=== PATIENT | female | born 1945 | race Caucasian/White ===

== ENCOUNTER 2017-12-30 16:09 | Observation (INO) ==
[2017-12-30 16:48] LABS: Basophils % 0.3 %; Eosinophils # 0.1 K/mcL (0.0-0.6); Eosinophils % 1.2 %; Hematocrit 39.1 % (35.3-44.9); Hemoglobin 13.3 g/dL (11.5-15.4); Immature Granulocytes % 0.4 % (0-4); Lymphocytes # 1.6 K/mcL (0.6-4.6); Lymphocytes % 16.3 %; Mean Corpuscular Hemoglobin 31.3 pg (28.0-33.3); Mean Platelet Volume 9.6 fL (9.4-12.4); Monocytes # 0.7 K/mcL (0.0-1.3); Monocytes % 7.4 %; Neutrophils # 7.2 K/mcL (1.6-8.9); Platelet Count 195 K/mcL (140-400); Red Blood Count 4.25 M/mcL (3.82-4.97); Red Cell Distribution Width 12.9 % (11.5-14.5); Segmented Neutrophils % 74.4 %
[2017-12-30 17:07] LABS: Prothrombin Time 10.7 Seconds (9.4-12.1)
[2017-12-30 17:10] LABS: Activated Partial Thrombo Time 26.5 Seconds (26.0-36.0)
[2017-12-30 17:13] LABS: Troponin I < 0.03 ng/mL (< 0.04)
[2017-12-30 17:15] LABS: BUN/Creatinine Ratio 19 (6-26); Blood Urea Nitrogen 11 mg/dL (8-23); Calcium 9.3 mg/dL (8.6-10.3); Carbon Dioxide 25 mEq/L (23-29); Chloride 105 mEq/L (98-107); Glucose 132 mg/dL (70-105); Osmolality,Calculated 285 (280-300); Potassium 3.6 mEq/L (3.5-5.1); Sodium 137 mEq/L (136-145); eGFR For African Americans > 60 (> 60); eGFR For Non-African Americans > 60 (> 60)
--- NOTE | 2017-12-30 17:17 | Emergency Department Note ---
Disposition Clinical Impression: Near syncope, Dizziness Fall Qualifiers: Encounter type: initial encounter Qualified Code(s): W19.XXXA - Unspecified fall, initial encounter Disposition: Admitted As Inpatient Condition: Good Referrals: Jovi Hawkins MD [Primary Care Provider] - Forms: ED Satisfaction Letter Time of Disposition: 18:05 General Adult HPI - General Chief complaint: ED Syncope Stated complaint: Near syncopy/dizzy Time Seen by Provider: 12/30/17 16:16 Source: patient Limitations: no limitations Nursing Notes Reviewed: Yes Vital Signs Reviewed: Yes - History of Present Illness HPI Narrative: Patient presents via personal vehicle for evaluation of intermittent dizziness. Patient of the symptoms come on just prior to arrival. Patient was walking the store and felt little lightheaded and felt dizzy. She felt like she passed out but never did. Mild anterior presented here in the emergency room her symptoms are completely resolved she feels completely normal. She denies any chest pain shortness of breath headache vision changes nausea vomiting or diarrhea prior to that event. Her only complaint today during the event was nursing syncopal presentation along with dizziness. 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 Radiation: non-radiation Pain Severity: mild Pain Scale: 0 Consistency: now resolved Improves with: nothing Worsens with: nothing Associated symptoms: Reports: denies other symptoms Treatments Prior to Arrival: none - Related Data Home Medications Medication Instructions Recorded Confirmed Naproxen Sodium [Aleve] 220 mg PO Q12H PRN 03/17/16 03/17/16 Previous Rx's Medication Instructions Recorded Naproxen [Naprosyn] 375 mg PO BID PRN #20 tablet 07/24/17 Allergies Allergy/AdvReac Type Severity Reaction Status Date / Time No Known Allergies Allergy Verified 07/24/17 11:57 All systems ED: reviewed and negative except as stated. Review of Systems: As Per HPI Constitutional: Denies: fever, chills, weakness Eyes: Denies: eye pain, eye discharge ENT ED: Denies: ear pain, throat pain, dental pain, hearing loss, congestion Cardiovascular: Denies: chest pain, palpitations, dyspnea on exertion, orthopnea , edema Respiratory: Denies: cough, dyspnea, wheezes Gastrointestinal: Denies: nausea, vomiting, diarrhea Musculoskeletal: Denies: back pain, neck pain Neurological: Denies: headache, weakness, numbness Psychiatric: Denies: anxiety Endocrine: Denies: fatigue Past Medical History - Past Medical History Attestation: Yes The following information was validated with the patient. Source: patient Medical history: Reports: no medical history Surgical history: Reports: hysterectomy Psychiatric history: Reports: no psych history - Social History Smoking Status: Never smoker Smokeless Tobacco Status: No Alcohol use: Reports: none Drug use: Reports: none Physical Exam - General Limitations: no limitations General appearance: alert, in no apparent distress - Eye Eye exam: Present: normal appearance, PERRL, EOMI - ENT ENT exam: normal exam, normal oropharynx, mucous membranes moist - Neck Neck exam: Present: normal inspection, full ROM, trachea midline - Chest Chest inspection: Present: normal inspection, symmetric chest wall rise - Respiratory Respiratory exam: Present: normal lung sounds bilaterally - Cardiovascular Cardiovascular exam: Present: regular rate, normal rhythm, normal heart sounds - Abdominal Exam Abdominal exam: Present: soft, Non-Tender, normal bowel sounds. Absent: tenderness, distention, guarding, rebound, rigidity, Mukherjee's sign, Rovsing's sign, tenderness at McBurney's Point - Extremities Exam Extremities exam: Present: normal inspection, full ROM, normal capillary refill. Absent: tenderness - Back Exam Back exam: Present: normal inspection - Neurological Exam Neurological exam: Present: alert, oriented X3, CN II-XII intact, normal gait. Absent: motor sensory deficit - Psychiatric Psychiatric exam: Present: normal affect, normal mood - Skin Skin exam: Present: warm, dry, intact, normal color Course Course Narrative: Patient seen and examined the time of arrival here to the emergency room. See history of present illness. 72-year-old female presents with approximately 5 minutes with of dizziness. Patient was out walking around going to the store today trying on clothing when she felt lightheaded and dizzy. She almost passed out. She is up to the floor without falling. Patient had no acute symptoms at that time. The symptoms completely resolved. She is felt something uneasy going on throughout the entire timeframe but does not describe any symptoms concerning for chest pain shortness of breath headache vision changes nausea vomiting or diarrhea fevers or chills. Denies any other new symptoms issues or medical changes here recently. Patient has been under a great deal of stress with her is getting out of the hospital. On physical exam here, patient resting comfortably in the bed she is alert she is oriented she speaks in full sentences. She has no facial asymmetry no slurred speech. Cranial nerves II through XII are grossly intact. She has had complete resolution of the symptoms and denies any complaints on my evaluation. Oropharynx is patent uvulas midline. Trachea is midline. She has no stridor no trismus. Her lungs are clear heart is regular. She has normal function of the upper and lower extremities with palpable radial pulses in the DP and PT distributions that are all symmetrical. Patient has no acute cerebellar dysfunction noted on finger to nose testing and [id number] testing. Patient is and Vincenzo here in the emergency room without any distress. Because of the presentation timeframe and the presenting symptoms along with intermittent dizziness patient will have CT imaging of the head EKG labs including CBC chemistry troponin and BNP electrolytes at this time. Disposition will most likely be admission the hospital secondary to near syncopal event today with unknown etiology. Her EKG was collected on presentation does show what appears to be stable left bundle branch block that is chronic. She has chronic inverted T waves in leads 1 aVL. There is no acute signs of ST segment elevation or abnormality. Patient is otherwise clinically stable and is denying chest pain throughout the course of care. Disposition to be completed once the full workup and treatment course are established. Once CT imaging of the head is negative patient will be provided with aspirin. Low clinical suspicion of this time for strokelike symptoms considering the acute onset of the symptoms and then the resolution patient will require full workup for near syncope and stroke presentation. - Reevaluation(s) Reevaluation #1: CT imaging of the head confirms what appears to be air-fluid level in the maxillary sinuses consistent with acute sinusitis. Patient also has chronic microvascular disease. Repeat EKG collected secondary to the tachycardia initially shows stable presentation with no change in morphology at this time. CBC chemistry troponin are all unremarkable at this point. Patient will be reevaluated and disposition will be determined. Chest x-ray does not show any acute pathology at this time. Time: 17:49 Reevaluation #2: Patient is accommodating for admission this time. She has been asymptomatic at this time. Patient is otherwise clinically stable. Will admit for near syncopal evaluation possible MRIs of the brain. Patient has no other acute pathology during this treatment course. Time: 18:06 Reevaluation #3: Patient was discussed with the hospitalist Dr. Norman. Detailed review of presentation symptoms medical intervention and evaluation were discussed at length. Only recommendation from them at this time is to address the blood pressure was persistently elevated. I went in to reevaluate the patient and her heart rate is now in the 80s and her most recent blood pressure is 141/91. I will not make any adjustments to his blood pressure this time they can continue to manage set up on the floor. Patient is otherwise resting comfortably in the bed no distress. Admission process will be completed at this time for near-syncopal event Time: 18:33 Vital Signs Temperature 97.8 F 12/30/17 16:17 Pulse Rate 95 12/30/17 16:17 Respiratory Rate 18 12/30/17 16:17 Blood Pressure 182/84 12/30/17 16:17 O2 Sat by Pulse Oximetry 98 12/30/17 16:17 Temperature 97.8 F 12/30/17 16:17 Pulse Rate 105 12/30/17 16:34 Respiratory Rate 15 12/30/17 16:34 Blood Pressure 175/84 12/30/17 16:34 O2 Sat by Pulse Oximetry 99 12/30/17 16:34 Oxygen Delivery Oxygen Delivery Room Air Medical Decision Making - MDM Narrative Medical decision making narrative: Near syncope, dizziness - Medical Records Medical records reviewed: Yes I reviewed the patient's medical records. - Lab Data Lab results reviewed: Yes I reviewed the patient's lab results. Result diagrams: 12/30/17 16:37 12/30/17 16:37 Lab Results 12/30/17 12/30/17 12/30/17 Range/Units 16:37 16:37 16:37 WBC 9.7 (4.3-11.1) K/mcL RBC 4.25 (3.82-4.97) M/mcL Hgb 13.3 (11.5-15.4) g/dL Hct 39.1 (35.3-44.9) % MCV 92.0 (83.0-100.0) fL MCH 31.3 (28.0-33.3) pg MCHC 34.0 (31.6-35.5) g/dL RDW 12.9 (11.5-14.5) % Plt Count 195 (140-400) K/mcL MPV 9.6 (9.4-12.4) fL Immature Gran % 0.4 (0-4) % Seg Neutrophils % 74.4 % Lymphocytes % 16.3 % Monocytes % 7.4 % Eosinophils % 1.2 % Basophils % 0.3 % Neutrophils # 7.2 (1.6-8.9) K/mcL Lymphocytes # 1.6 (0.6-4.6) K/mcL Monocytes # 0.7 (0.0-1.3) K/mcL Eosinophils # 0.1 (0.0-0.6) K/mcL Basophils # 0.0 (0.0-0.2) K/mcL PT 10.7 (9.4-12.1) Seconds INR 1.0 APTT 26.5 (26.0-36.0) Seconds Sodium 137 (136-145) mEq/L Potassium 3.6 (3.5-5.1) mEq/L Chloride 105 (98-107) mEq/L Carbon Dioxide 25 (23-29) mEq/L BUN 11 (8-23) mg/dL Creatinine 0.59 L (0.60-1.20) mg/dL Est GFR ( Amer) > 60 (> 60) Est GFR (Non-Af Amer) > 60 (> 60) BUN/Creatinine Ratio 19 (6-26) Glucose 132 H (70-105) mg/dL POC Glucose (70-99) mg/dL Calculated Osmolality 285 (280-300) Calcium 9.3 (8.6-10.3) mg/dL Troponin I < 0.03 (< 0.04) ng/mL Urine Color (Yellow) Urine Clarity (Clear) Urine pH (5.0-8.0) pH Units Ur Specific Talent (1.010-1.025) Urine Protein (Neg-Trace) mg/dL Urine Glucose (UA) (Normal) mg/dL Urine Ketones (Negative) mg/dL Urine Blood (Negative) Urine Nitrite (Negative) Urine Bilirubin (Negative) Urine Urobilinogen (Normal) mg/dL Ur Leukocyte Esterase (Negative) 12/30/17 12/30/17 Range/Units 16:39 17:15 WBC (4.3-11.1) K/mcL RBC (3.82-4.97) M/mcL Hgb (11.5-15.4) g/dL Hct (35.3-44.9) % MCV (83.0-100.0) fL MCH (28.0-33.3) pg MCHC (31.6-35.5) g/dL RDW (11.5-14.5) % Plt Count (140-400) K/mcL MPV (9.4-12.4) fL Immature Gran % (0-4) % Seg Neutrophils % % Lymphocytes % % Monocytes % % Eosinophils % % Basophils % % Neutrophils # (1.6-8.9) K/mcL Lymphocytes # (0.6-4.6) K/mcL Monocytes # (0.0-1.3) K/mcL Eosinophils # (0.0-0.6) K/mcL Basophils # (0.0-0.2) K/mcL PT (9.4-12.1) Seconds INR APTT (26.0-36.0) Seconds Sodium (136-145) mEq/L Potassium (3.5-5.1) mEq/L Chloride (98-107) mEq/L Carbon Dioxide (23-29) mEq/L BUN (8-23) mg/dL Creatinine (0.60-1.20) mg/dL Est GFR ( Amer) (> 60) Est GFR (Non-Af Amer) (> 60) BUN/Creatinine Ratio (6-26) Glucose (70-105) mg/dL POC Glucose 141 H (70-99) mg/dL Calculated Osmolality (280-300) Calcium (8.6-10.3) mg/dL Troponin I (< 0.04) ng/mL Urine Color Yellow (Yellow) Urine Clarity Clear (Clear) Urine pH 6.5 (5.0-8.0) pH Units Ur Specific Talent 1.012 (1.010-1.025) Urine Protein Negative (Neg-Trace) mg/dL Urine Glucose (UA) Normal (Normal) mg/dL Urine Ketones Negative (Negative) mg/dL Urine Blood Negative (Negative) Urine Nitrite Negative (Negative) Urine Bilirubin Negative (Negative) Urine Urobilinogen Normal (Normal) mg/dL Ur Leukocyte Esterase Negative (Negative) - Radiology Data Radiology results reviewed: Yes I reviewed the patient's radiology results. Chest x-ray and CT imaging of the head unremarkable this time for intracranial intrathoracic related pathology. - EKG Data EKG #1 EKG attestation: Yes I reviewed and interpreted this EKG. EKG results narrative: EKG shows sinus rhythm. Ventricular rate of 108. FL interval 170. QRS duration of 140. QTC of 436. [place] appears to be leftward deviated. Patient has left bundle branch block that appears to be chronic. There is some intermittent FL depression in leads 1 aVL in the lateral precordial's. This could be secondary to the tachycardia. Patient has no signs of ST segment elevation. No acute signs of myocardial infarction or reciprocal changes at this time. This was compared to an EKG on 02/26/16 that shows similar morphology. Repeat EKG was collected at 1742 hours. Patient has had resolution of the tachycardia with a heart rate of 89. Intervals appear to be all stable this time and no changes in the presentation and T-wave inversion. Patient is otherwise clinically stable and continues to chest pain
[2017-12-30 17:27] LABS: Bilirubin,Urine Negative (Negative); Blood,Urine Negative (Negative); Clarity,Urine Clear (Clear); Color,Urine Yellow (Yellow); Glucose,Urine (UA) Normal (Normal); Ketones,Urine Negative (Negative); Leukocyte Esterase,Urine Negative (Negative); Nitrite,Urine Negative (Negative); PH,Urine 6.5 pH Units (5.0-8.0); Protein,Urine Negative (Neg-Trace); Specific Gravity,Urine 1.012 (1.010-1.025); Urobilinogen,Urine Normal (Normal)
[2017-12-30] MEDS ORDERED: Aspirin 81 MG TAB.CHEW PO STA (17:49)
[2017-12-30] MEDS ORDERED: Naloxone 0.4 MG/ML INJ IVP PRN (21:12)
[2017-12-30] MEDS ORDERED: Acetaminophen 325 MG TABLET PO PRN (21:12)
--- NOTE | 2017-12-30 21:18 | Internal Med History&Physical ---
Date of Encounter: 12/30/17 Time of Encounter: 21:17 Internal Medicine - H&P: HPI Chief complaint: Dizziness Admitted From: Emergency Dept Plans for Post Hospital Care: Home History of present illness: Ms. Alatorre is a 72 year old female with no significant past medical history, who presents with complaints of dizziness and near syncope. Patient reports that she and her have been sick with flu-like symptoms for the last 3 weeks, has been treated with a course of Z-Yimi and subsequently with Levaquin and prednisone by the PCP. Patient's symptoms have improved for the most part but she continued to have some generalized weakness. Her needed hospitalization, was discharged from our hospital 2 days ago. Patient went shopping, has been at the [employer] store for close to 2 hours, when she suddenly felt extremely dizzy as if she was going to pass out and sat down on the floor. This episode was associated with nausea but no chest pain, shortness of breath, vomiting, diarrhea, seizure-like activity. No similar prior episodes. Past Med Surg Social Fam HX - Past Medical History Source: patient Medical history: no medical history Psychiatric history: no psych history - Past Surgical History Surgical History: hysterectomy, orthopedic, other (Left foot surgery) - Social History Smoking Status: Never smoker Smokeless Tobacco Status: No Alcohol use: none Drug use: none Occupational status: unemployed Current living situation: Home, With Family Activity Level: Independent ambulation Recent Out of Country Travel Within the Last 8 Weeks: No Exposure or Possible Exposure to Illness During Travel: No - Family History Mother Living Status: Age at : 92 Cause of : dementia Hx Family Cardiac Disorders: Yes (enlarged) Father Living Status: Age at : 73 Cause of : cardiac Hx Family Cardiac Disorders: Yes Internal Medicine - H&P: Meds Multivit-Min/FA/Lycopen/Lutein [Adults 50+ Multivitamin Tablet] 1 each PO DAILY 12/30/17 [History] 3 Allergy/AdvReac Type Severity Reaction Status Date / Time Sulfa (Sulfonamide Allergy Hives Verified 12/30/17 20:06 Antibiotics) All Systems PM: A 10-system review of systems was performed and is negative for pertinent findings except as documented above in the HPI. - Constitutional Constitutional: no chills, no fever(s), no night sweats - EENT Eyes: no change in vision, no discharge, no pain, no photophobia Ears: no ear discharge, no ear pain, no tinnitus Nose, mouth and throat: no dysphagia, no nasal discharge, no neck pain, no sore throat - Cardiovascular Cardiovascular ROS IM: lightheadedness - Respiratory Respiratory: no cough, no dyspnea, no wheezing, no excessive phlegm production - Gastrointestinal Gastrointestinal: nausea, no abdominal pain, no diarrhea, no hematemesis, no hematochezia, no melena, no vomiting - Genitourinary Genitourinary: no change in urinary stream, no dysuria, no flank pain, no hematuria - Musculoskeletal Musculoskeletal ROS IM: no numbness, no tingling - Integumentary Integumentary IM: no rash, no unusual bruising - Neurological Neurological ROS: no confusion, no convulsions, no focal weakness, no numbness, no tingling, no tremor(s) - Hematologic/Lymphatic Hematologic/Lymphatic: no easy bruising - Constitutional Vitals: Temp Pulse Resp BP Pulse Ox 97.7 F 90 16 133/76 96 12/30/17 20:15 12/30/17 20:15 12/30/17 20:15 12/30/17 20:15 12/30/17 20:15 General appearance: Present: A&O X 3 (Extremely pleasant and well informed), answers questions appropriately - Respiratory Respiratory exam: Present: CTAB. Absent: accessory muscle use, rales, rhonchi, wheezes - Cardiovascular Cardiovascular exam: Present: RRR, +S1, +S2, systolic murmur. Absent: diastolic murmur, gallop, rubs - GI/Abdominal GI/Abdominal exam: Present: normal bowel sounds, soft, no peritoneal signs. Absent: distended, tenderness - Extremities Exam Extremities exam: Present: full ROM, warm, radial pulses palpable and symmetrical. Absent: calf tenderness, cyanotic, pedal edema - Neurological Exam Neurological exam: Present: CN II-XII intact, oriented X3, no focal deficits. Absent: pronater drift, facial droop, speech deficit Internal Med - H&P Results - Labs CBC & Chem 7: 12/30/17 16:37 12/30/17 16:37 - Assessment and plan (1) Near syncope Current Visit: Yes Status: Acute Assessment and plan: Likely vasovagal, due to recent respiratory infection. Basic labs including serum troponin are normal. EKG reviewed independently-shows normal sinus rhythm , left bundle branch block. Chest x-ray shows no acute abnormality. CT head showed no acute abnormality. Continue telemetry monitoring to rule out arrhythmia. Cycle troponins. Recent echocardiogram from September 2017 showed preserved ejection fraction, mild left ventricular diastolic dysfunction, mild aortic sclerosis and mild aortic regurgitation. - Time Spent With Patient Total time spent is greater than 50% in coordination of care (as documented) at patient's floor/unit and/or counseling patient:
[2017-12-30] MEDS: *HR* Heparin 5,000 UNIT/ML VIAL SQ SCH (22:46)
[2017-12-31 04:46] LABS: Basophils % 0.5 %; Eosinophils # 0.2 K/mcL (0.0-0.6); Eosinophils % 2.9 %; Hematocrit 34.6 % (35.3-44.9); Immature Granulocytes % 0.3 % (0-4); Lymphocytes # 1.8 K/mcL (0.6-4.6); Lymphocytes % 27.4 %; Mean Corpuscular HGB Conc 33.8 g/dL (31.6-35.5); Mean Corpuscular Hemoglobin 31.5 pg (28.0-33.3); Mean Corpuscular Volume 93.3 fL (83.0-100.0); Mean Platelet Volume 9.7 fL (9.4-12.4); Monocytes # 0.7 K/mcL (0.0-1.3); Monocytes % 10.4 %; Neutrophils # 3.9 K/mcL (1.6-8.9); Nucleated Red Blood Cells 0.3 /100 WBC (0); Platelet Count 164 K/mcL (140-400); Red Blood Count 3.71 M/mcL (3.82-4.97); Red Cell Distribution Width 13.1 % (11.5-14.5); Segmented Neutrophils % 58.5 %
[2017-12-31 04:52] LABS: Hemoglobin 11.7 g/dL (11.5-15.4)
[2017-12-31 05:07] LABS: BUN/Creatinine Ratio 28 (6-26); Blood Urea Nitrogen 17 mg/dL (8-23); Carbon Dioxide 24 mEq/L (23-29); Chloride 107 mEq/L (98-107); Chol/HDL Ratio 4.9 (0-4.9); Cholesterol 194 mg/dL (< 200); Glucose 135 mg/dL (70-105); HDL Cholesterol 40 mg/dL (40-59); LDL Cholesterol,Calculated 101 mg/dL (0-99); Osmolality,Calculated 288 (280-300); Potassium 4.3 mEq/L (3.5-5.1); Sodium 137 mEq/L (136-145); Triglycerides 263 mg/dL (< 150); eGFR For African Americans > 60 (> 60); eGFR For Non-African Americans > 60 (> 60)
[2017-12-31] MEDS: *HR* Heparin 5,000 UNIT/ML VIAL SQ SCH ×2 (06:12→15:03)
[2017-12-31] MEDS ORDERED: Multivit/Ca/Min/Fe/FA 1 TAB TABLET PO SCH (09:00)
[2017-12-31] MEDS ORDERED: Ibuprofen 400 MG TABLET PO PRN (15:03)
--- NOTE | 2017-12-31 15:29 | Discharge Summary ---
- NOTES TO OUTPATIENT PROVIDER Notes to Outpatient Provider: f/u with PCP within a week. Date of Encounter: 12/31/17 Time of Encounter: 15:27 - Discharge Diagnosis (1) Near syncope Priority: Primary Status: Acute Hospital course: Ms. Alatorre is a 72 year old female presented with near syncope. She recently had upper respiratory tract infection and sinusitis. Prior to this episode, she was shopping and standing for more than 3 hours. Her presyncope episodes was associated with nausea but patient denies chest pain, shortness of breath, or palpitation. EKG was sinus rhythm with left bundle branch block without acute ST-T change. Carotid Doppler revealed bilateral insignificant stenosis. CT head and a chest x-ray revealed no acute abnormalities. Her symptoms was consistent with vasovagal syncope. She was instructed to take statins but she would rather discuss with her PCP first. She is discharged home today with follow-up with primary care physician within one week. Time spent discussing smoking cessation with patient: more than 10 minutes - Time Spent with Patient Total time spent providing and/or coordinating discharge services: Less than 30 minutes - Discharge Medications Home Medications: Multivit-Min/FA/Lycopen/Lutein [Adults 50+ Multivitamin Tablet] 1 each PO DAILY 12/30/17 [History] Allergies/Adverse Reactions: 3 Allergy/AdvReac Type Severity Reaction Status Date / Time Sulfa (Sulfonamide Allergy Hives Verified 12/30/17 20:06 Antibiotics) Date of admission: 12/30/17 18:57 Primary care physician: Jovi Hawkins MD Anticipated date of discharge: 12/31/17 - Constitutional Vitals: Temp Pulse Resp BP Pulse Ox 98.0 F 80 16 156/77 97 12/31/17 11:41 12/31/17 11:41 12/31/17 11:41 12/31/17 11:41 12/31/17 11:41 General appearance: Present: A&O X 3 (Extremely pleasant and well informed), answers questions appropriately Exam: PHYSICAL EXAMINATION: GENERAL APPEARANCE: The patient is alert, oriented and in no acute distress. HEENT: Head is normocephalic. The sinuses are nontender. Pupils are equal and reactive. The nares are patent. Oropharynx clear without lesions. NECK: Supple without lymphadenopathy. HEART: Regular rate and rhythm. LUNGS: No crackles or wheezes are heard. ABDOMEN: Soft, nontender, nondistended with good bowel sounds heard. Inguinal area is normal. EXTREMITIES: Without cyanosis, clubbing or edema. NEUROLOGICAL: Gross nonfocal. SKIN: Warm and dry without any rash. - Patient Status Disposition: Home, Self-Care Condition: Good Functional capacity at discharge: independent ambulation Overall status at discharge: patient is back to baseline - Discharge Instructions Follow Up With: Jovi Hawkins MD [Primary Care Provider] - - Diet and Activity Activity: increase activity as tolerated Diet: low fat, low cholesterol
[2017-12-31 15:40] VITALS: BP 152/70
--- NOTE | 2018-01-01 13:14 | Electrocardiograph Report ---
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
--- NOTE | 2018-01-01 13:16 | Electrocardiograph Report ---
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
== END 2017-12-31 16:29 | disposition home or self-care (01) ==
LOC: EMEROO 16:09 → 3NENU 16:09
PROVIDERS: ADMIT Internal Medicine; ATTEND Internal Medicine